=== PATIENT | female | born 1950 | race Caucasian/White ===

== ENCOUNTER 2018-10-15 18:44 | Emergency (ER) | payer MEDICARE, OTHER ==
[2018-10-15] MEDS ORDERED: Sodium Chloride 0.9% 10 ML Syringe FLUSH PRN (19:01)
--- NOTE | 2018-10-15 19:05 | EDM.PDOC ---
ED HPI GENERAL MEDICAL PROBLEM - General Chief Complaint: Neuro Symptoms/Deficits Stated Complaint: POSSIBLE STROKE Time Seen by Provider: 10/15/18 19:01 Source of Information: Reports: Patient History Limitations: Reports: No Limitations - History of Present Illness INITIAL COMMENTS - FREE TEXT/NARRATIVE: pt arrived with a history of left facial weakness that lasted about 1 minute. She was not able to get her words out. Started about 17 twenty five. Her left arm was tingling. She does not have a headache. She is at baseline. Lasted 2-3 minutes at most. Onset: Today, Sudden Duration: Hour(s): Location: Reports: Head, Upper Extremity, Left, Generalized - Related Data Allergies Allergy/AdvReac Type Severity Reaction Status Date / Time codeine Allergy Cannot Verified 10/15/18 18:59 Remember venom-honey bee Allergy unknown Verified 10/15/18 18:59 [bee venom (honey bee)] Home Meds: Home Meds NK [No Known Home Meds] 10/15/18 [History] ED ROS GENERAL - Review of Systems Review Of Systems: See Below Constitutional: Reports: Other (pt developed dizziness at 1700 today. She developed facial weakness on the left and was not able to speak. She had a witness to the facial weakness and this was dramatic. This lasted for about 3 minutes. She is back to normal on arrival except for some tingling in the left . She did arrive about 6 forty five. She has not had recurrent symptoms. ) HEENT: Reports: No Symptoms Respiratory: Reports: No Symptoms Cardiovascular: Reports: No Symptoms, Other (pt had a normal ekg with a normal sinus rhythm. ) Endocrine: Reports: No Symptoms GI/Abdominal: Reports: No Symptoms : Reports: No Symptoms Musculoskeletal: Reports: No Symptoms Skin: Reports: No Symptoms Neurological: Reports: Other ( tingling in the left arm. She appeared to have normal strength in both arms and legs. ) Psychiatric: Reports: No Symptoms ED EXAM, NEURO - Physical Exam Exam: See Below Text/Narrative:: pt arrived with a history at about 1800 that she developed facial weakness on the left with difficulty speaking. Sh arrived at our ER at 6 forty five. She had a cat scan immediately which was neg. Exam Limited By: No Limitations General Appearance: Alert, No Apparent Distress, Other (pt had some persistent tingling in the left arm. pupils were equal and reactive. ) Ears: Normal TMs Nose: Normal Inspection Throat/Mouth: Normal Inspection Head Exam: Atraumatic Neck: Normal Inspection, Other ( no bruits were heard. ) Respiratory/Chest: No Respiratory Distress Cardiovascular: Regular Rate, Rhythm, Other (no murmurs present) GI/Abdominal: Soft, Non-Tender (Female) Exam: Deferred Rectal (Female) Exam: Deferred Neurological: Alert, Oriented x 3 Back Exam: Normal Inspection Extremities: Normal Inspection Psychiatric: Normal Affect Course - Vital Signs Last Recorded V/S: Last Vital Signs Temp 36.1 C 10/15/18 18:58 Pulse 70 10/15/18 18:58 Resp 16 10/15/18 18:58 BP 153/80 H 10/15/18 18:58 Pulse Ox 97 10/15/18 18:58 - Orders/Labs/Meds Orders: Active Orders 24 hr Category Date Time Status EKG Documentation Completion [RC] ASDIRECTED Care 10/15/18 18:52 Active CULTURE STREP A CONFIRMATION [] Stat Lab 10/15/18 20:08 Results STREP SCRN A RAPID W CULT CONF [] Stat Lab 10/15/18 20:08 Results Dextrose 5%-0.45% NaCl [Dextrose 5%-1/2 NS] 500 ml Med 10/15/18 20:30 Ordered IV ASDIRECTED Sodium Chloride 0.9% [Saline Flush] Med 10/15/18 19:01 Active 10 ml FLUSH ASDIRECTED PRN Saline Lock Insert [OM.PC] Routine Oth 10/15/18 19:01 Ordered EKG 12 Lead [EK] Routine Ther 10/15/18 18:52 Ordered Medication Orders Sodium Chloride (Saline Flush) 10 ml FLUSH ASDIRECTED PRN PRN Reason: Keep Vein Open Last Admin: 10/15/18 19:22 Dose: 10 ml Labs: Laboratory Tests 10/15/18 10/15/18 10/15/18 Range/Units 19:16 19:28 19:28 WBC 9.9 (4.5-11.0) K/uL RBC 4.38 (3.30-5.50) M/uL Hgb 13.1 (12.0-15.0) g/dL Hct 40.3 (36.0-48.0) % MCV 92 (80-98) fL MCH 30 (27-31) pg MCHC 33 (32-36) % Plt Count 293 (150-400) K/uL Neut % (Auto) 56 (36-66) % Lymph % (Auto) 33 (24-44) % [place] % (Auto) 8 H (2-6) % Eos % (Auto) 2 (2-4) % Baso % (Auto) 1 (0-1) % Sodium 133 L (140-148) mmol/L Potassium 3.5 L (3.6-5.2) mmol/L Chloride 97 L (100-108) mmol/L Carbon Dioxide 26 (21-32) mmol/L Anion Gap 13.5 (5.0-14.0) mmol/L BUN 9 (7-18) mg/dL Creatinine 0.8 (0.6-1.0) mg/dL Est Cr Clr Drug Dosing 60.56 mL/min Estimated GFR (MDRD) > 60 (>60) Glucose 87 (74-106) mg/dL Calcium 8.2 L (8.5-10.1) mg/dL Total Bilirubin 0.1 L (0.2-1.0) mg/dL AST 15 (15-37) U/L ALT 24 (12-78) U/L Alkaline Phosphatase 119 H (46-116) U/L Total Protein 6.7 (6.4-8.2) g/dL Albumin 3.1 L (3.4-5.0) g/dL Globulin 3.6 H (2.3-3.5) g/dL Albumin/Globulin Ratio 0.9 L (1.2-2.2) Urine Color Yellow (YELLOW) Urine Appearance Clear (CLEAR) Urine pH 6.0 (5.0-8.0) Ur Specific [place] 1.005 L (1.008-1.030) Urine Protein Negative (NEGATIVE) mg/dL Urine Glucose (UA) Negative (NEGATIVE) mg/dL Urine Ketones Negative (NEGATIVE) mg/dL Urine Occult Blood Negative (NEGATIVE) Urine Nitrite Negative (NEGATIVE) Urine Bilirubin Negative (NEGATIVE) Urine Urobilinogen Normal (0.2-1.0) EU/dL Ur Leukocyte Esterase Negative (NEGATIVE) Urine RBC 0-5 (0-5) Urine WBC 0-5 (0-5) Ur Epithelial Cells Rare Amorphous Sediment Rare Urine Bacteria Rare Urine Mucus Rare Meds: Medications Generic Name Dose Route Start Last Admin Trade Name Zechariah PRN Reason Stop Dose Admin Sodium Chloride 10 ml 10/15/18 19:01 10/15/18 19:22 Saline Flush FLUSH 10 ml ASDIRECTED PRN Administration Keep Vein Open Discontinued Medications Generic Name Dose Route Start Last Admin Trade Name Zechariah PRN Reason Stop Dose Admin Aspirin 81 mg 10/15/18 20:26 Aspirin PO 10/15/18 20:27 ONETIME ONE - Re-Assessments/Exams Free Text/Narrative Re-Assessment/Exam: 10/15/18 20:37 pt trammell. She states the tingling in her arm on the left is gone. She is feeling back to baselined . Her lab work looked good. She has a long history of smoking 1/2 pack daily her cat scan of the head is neg. She has no further neuro symptoms/ Neurology at [facility] was contacted and felt she needed a cat scan cta. She will be sent to the er. Departure - Departure Time of Disposition: 20:41 Disposition: DC/Tfer to Acute Hospital 02 Condition: Fair Clinical Impression: TIA (transient ischemic attack) - Discharge Information Referrals: PCP,None [Primary Care Provider] - Forms: ED Department Discharge Care Plan Goals: transfer to [facility] ER - My Orders Last 24 Hours: My Active Orders 10/15/18 18:52 EKG Documentation Completion [RC] ASDIRECTED EKG 12 Lead [EK] Routine 10/15/18 19:01 Sodium Chloride 0.9% [Saline Flush] 10 ml FLUSH ASDIRECTED PRN Saline Lock Insert [OM.PC] Routine 10/15/18 20:08 CULTURE STREP A CONFIRMATION [RM] Stat STREP SCRN A RAPID W CULT CONF [RM] Stat 10/15/18 20:30 Dextrose 5%-0.45% NaCl [Dextrose 5%-1/2 NS] 500 ml IV ASDIRECTED - Assessment/Plan Last 24 Hours: My Active Orders 10/15/18 18:52 EKG Documentation Completion [RC] ASDIRECTED EKG 12 Lead [EK] Routine 10/15/18 19:01 Sodium Chloride 0.9% [Saline Flush] 10 ml FLUSH ASDIRECTED PRN Saline Lock Insert [OM.PC] Routine 10/15/18 20:08 CULTURE STREP A CONFIRMATION [RM] Stat STREP SCRN A RAPID W CULT CONF [RM] Stat 10/15/18 20:30 Dextrose 5%-0.45% NaCl [Dextrose 5%-1/2 NS] 500 ml IV ASDIRECTED
--- NOTE | 2018-10-15 20:02 | CRLCT ---
INDICATION: left facial weakness and tingling in her left arm CT HEAD WITHOUT CONTRAST TECHNIQUE: Multiple axial CT images were performed through the head without intravenous contrast administration. COMPARISON: No previous studies are currently available for comparison. FINDINGS: No acute intracranial hemorrhage is identified. No extra-axial collections are evident and there is no mass effect or midline shift. There is mild diffuse age-related brain atrophy. Ventricular size and configuration are within normal limits for the patient`s age. Arellano-white differentiation is within normal limits. Intracranial atherosclerotic vascular calcifications are noted. Osseous structures are within normal limits and no fractures are seen. Included portions of the paranasal sinuses and mastoid air cells are normally aerated aside from mild mucosal thickening in the sphenoid sinus. IMPRESSION: 1. No acute intracranial abnormality identified. 2. Mild age-related brain atrophy and intracranial atherosclerotic vascular calcifications. Please note that all CT scans at this facility use dose modulation,iterative reconstruction, and\or weight-based dosing when appropriate to reduce radiation dose to as low as reasonably achievable. BENEDICT BOUCHER MD [employer] [facility] Dictated by: Phu Boucher MD @ 10/15/2018 20:00:17 (Electronically Signed) MTDD
[2018-10-15] MEDS ORDERED: Aspirin 81 MG Tab.Chew PO ONE (20:26)
[2018-10-15] MEDS ORDERED: Dextrose 5%-0.45% NaCl 500 ML IV SCH (20:30)
[2018-10-15 21:17] VITALS: BP 128/70
== END 2018-10-15 22:07 ==
LOC: JP.ED 18:44
DX: G45.9 Transient cerebral ischemic attack, unspecified (principal); Z88.5 Allergy status to narcotic agent; Z91.030 Bee allergy status
CPT/HCPCS: 36415; 70450; 80053; 81001; 85025; 87081; 87880; 93005; 96360; 99285; A9270